=== PATIENT | male | born 1955 | race Caucasian/White ===

== ENCOUNTER 2016-11-06 19:51 | Emergency (ER) | payer OTHER ==
[~2016-11-06] VITALS: Ht 182.9 cm; Wt 102.3 kg
[2016-11-06] MEDS ORDERED: NS 500 ML IV ONE (20:00)
[2016-11-06] MEDS ORDERED: fentaNYL 100 MCG/2 ML INJECTION (J3010) IV ONE (20:00)
[2016-11-06 20:58] LABS: BASO % 0.3 % (0.0-1.0); EOS # 0.1 K/mm3 (0.0-0.50); EOS % 0.9 % (0.0-3.0); LARGE UNSTAINED CELL # 0.1 K/mm3 (0.0-0.4); LARGE UNSTAINED CELL % 1.7 % (0.0-4.0); LYMPH # 1.8 K/mm3 (1.5-4.5); LYMPH % 22.7 % (24.0-44.0); MEAN CORPUSCULAR HGB CONC 35.2 g/dl (32.0-36.5); MEAN CORPUSCULAR VOLUME 90.7 fl (80.0-96.0); MONO # 0.4 K/mm3 (0.0-0.8); MONO % 5.6 % (0.0-5.0); NEUTROPHILS # 5.5 K/mm3 (1.8-7.7); NEUTROPHILS % 68.7 % (36.0-66.0); PLATELET COUNT, AUTOMATED 254 k/mm3 (150-450); RED CELL DISTRIBUTION WIDTH 13.3 % (11.5-14.5); WHITE BLOOD COUNT 7.9 K/mm3 (4.0-10.0)
[2016-11-06 21:08] LABS: INR 0.97
[2016-11-06 21:22] LABS: ALBUMIN 4.3 GM/DL (3.2-5.2); ALBUMIN/GLOBULIN RATIO 1.26 (1.00-1.93); ALKALINE PHOSPHATASE 107 U/L (45-117); ALT/SGPT 49 U/L (12-78); ANION GAP 7 MEQ/L (8-16); AST/SGOT 22 U/L (15-37); BILIRUBIN,DIRECT 0.1 MG/DL (0.0-0.2); BILIRUBIN,TOTAL 0.6 MG/DL (0.2-1.0); BLOOD UREA NITROGEN 17 MG/DL (7-18); CALCIUM LEVEL 8.7 MG/DL (8.8-10.2); CARBON DIOXIDE LEVEL 26 MEQ/L (21-32); CHLORIDE LEVEL 106 MEQ/L (98-107); CREATININE FOR GFR 0.99 MG/DL (0.70-1.30); GLOMERULAR FILTRATION RATE > 60.0 (>49); GLUCOSE, FASTING 103 MG/DL (80-110); POTASSIUM SERUM 3.6 MEQ/L (3.5-5.1); SODIUM LEVEL 139 MEQ/L (136-145); TOTAL PROTEIN 7.7 GM/DL (6.4-8.2)
[2016-11-06] MEDS ORDERED: ISOVUE-370 76% 100ML VIAL (Q9967) As Ordered ONE (21:24)
--- NOTE | 2016-11-06 22:10 | REPUSA ---
CT of the head Clinical history: trauma. Technique: Multiple axial CT images were obtained through the head without administration of contrast . Comparison: None. Findings: The ventricles and sulci are symmetric bilaterally. There is no evidence of acute hemorrhag e or infarct. There is no midline shift, mass effect, or extra-axial fluid collection. The osseous st ructures are unremarkable. The visualized paranasal sinuses and mastoid air cells are clear. Impression: Negative study.
--- NOTE | 2016-11-06 22:10 | REPUSA ---
CT of the abdomen and pelvis with contrast Clinical statement: trauma. Technique: Multiple axial CT images were obtained from the base of the lungs through the floor of the pelvis utilizing 5 mm axial slices after administration of nonionic intravenous contrast. Coronal an d sagittal reconstructions were also obtained. Comparison: None. Findings: Chest: The visualized lung bases are clear. Abdomen: The spleen, pancreas, kidneys, gallbladder, and adrenal glands are unremarkable. There is di ffuse heterogeneous low attenuation of the liver. The aorta is within normal limits. There is no evid ence of abdominal lymphadenopathy or ascites. Pelvis: The bowel is unremarkable, with no obstructive or inflammatory changes. There is diffuse dive rticulosis. The urinary bladder is within normal limits. The other pelvic structures appear grossly i ntact. There is no evidence of pelvic lymphadenopathy or ascites. Bones: There are no suspicious osseous abnormalities seen. Impression: 1. No acute traumatic injury. 2. Diffuse fatty infiltration of the liver. 3. Diffuse diverticulosis. No evidence of diverticulitis.
--- NOTE | 2016-11-06 22:10 | REPUSA ---
CT of the cervical spine Clinical history: Trauma. Technique: Multiple axial CT images were obtained through the cervical spine without administration o f contrast. Coronal and sagittal 3-D reconstructed images were also obtained. Comparison: None. Findings: The cervical vertebral bodies are in satisfactory positioning and alignment. No fractures or dislocat ions are demonstrated. The odontoid process is intact. Intervertebral disc spaces are well-maintained . There is no evidence of facet subluxation. The neural foramen appear grossly patent. The cervical c ranial junction is intact. The cervical spinal canal demonstrates normal caliber and contour without evidence of spinal stenosis. The surrounding soft tissues are within normal limits. Impression: Unremarkable CT examination of the cervical spine.
--- NOTE | 2016-11-06 22:10 | REPUSA ---
CT of the chest Clinical statement: Chest pain, trauma. Technique: Multiple axial CT images were obtained from the thoracic inlet through the upper abdomen a fter a bolus administration of nonionic intravenous contrast. Coronal and sagittal reconstructions we re also obtained. Comparison: None. Findings: The central pulmonary arteries are well-opacified with contrast, with no intraluminal filli ng defects to suggest embolism. The thoracic aorta is unremarkable. Thyroid gland is within normal li mits. There is no thoracic lymphadenopathy. There are no pericardial or pleural effusions. The lungs are clear. Limited imaging of the upper abdomen is unremarkable. There are no suspicious osseous lesi ons. Impression: Unremarkable CT examination of the chest. No evidence of pulmonary embolism.
[2016-11-07] MEDS ORDERED: PERCOCET 5MG/325MG TAB PO ONE (00:45)
[2016-11-07 00:51] VITALS: BP 149/85
[2016-11-07] MEDS ORDERED: PERC5TAB6 PO (00:56)
[2016-11-07] MEDS ORDERED: CYCL5TA PO (00:57)
[2016-11-07] MEDS ORDERED: OXYCODONE/APAP 5MG/325MG(BULK FOR ED) 1 TABLET PO ONE (01:00)
--- NOTE | 2016-11-07 01:09 | REP ---
Clinical: Pain with recent trauma . Technique: Internal rotation, external rotation, and Y view left shoulder . Findings: No acute fracture or dislocation. Age-related degenerative changes include cortical irregularity and subtle spurring primarily involving the acromioclavicular joint as well as anteroinferior margin of the humeral head. A small periarticular calcification adjacent to the humeral tuberosity also reflect underlying calcific tendinopathy. The acromioclavicular and glenohumeral joints are intact. Sub acromial space is normal. Surrounding soft tissues are unremarkable. 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 No acute fracture or dislocation. Signed by Wang Billings MD 11/07/2016 01:00 A
--- NOTE | 2016-11-07 01:12 | REP ---
Clinical: Trauma . Comparison: 12/29/2015 . Findings: The mediastinum and cardiac silhouette are stable and within normal limits for portable technique. The lung rodriguez are clear without acute consolidation, effusion, or pneumothorax. Skeletal structures are intact. Impression: Normal portable chest x-ray Signed by Wang Billings MD 11/07/2016 01:03 A
--- NOTE | 2016-11-07 05:58 | ECGEPIP ---
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
== END 2016-11-07 01:27 | disposition home or self-care (01) ==
LOC: EDBD 19:51 → M ED 21:23
DX: R31.9 Hematuria, unspecified (principal); W23.0XXA Caught, crushed, jammed, or pinched between moving objects, initial encounter; Y92.9 Unspecified place or not applicable; Y93.89 Activity, other specified; Y99.9 Unspecified external cause status; K76.0 Fatty (change of) liver, not elsewhere classified; K57.90 Diverticulosis of intestine, part unspecified, without perforation or abscess without bleeding
CPT/HCPCS: 36415; 70450; 71010; 71260; 72125; 73030; 74177; 80048; 80076; 81001; 82550; 82553; 83605; 83690; 85025; 85610; 85730; 86850; 86900; 86901; 93005; 93041; 94760; 96374; 99284; J3010; Q9967

== ENCOUNTER → 2016-11-13 | Outpatient (CLI) | payer OTHER ==
[~2016-11-13] MED LIST: CYCL5TA PO; PERC5TAB6 PO
[2016-11-13 10:55] LABS: MEAN CORPUSCULAR HGB CONC 35.1 g/dl (32.0-36.5); MEAN CORPUSCULAR VOLUME 91.3 fl (80.0-96.0); WHITE BLOOD COUNT 5.2 K/mm3 (4.0-10.0)
== END ==
LOC: M LAB 09:35
PROVIDERS: ATTEND Family Medicine
DX: D64.9 Anemia, unspecified (principal)

== ENCOUNTER → 2016-12-07 | Outpatient (CLI) | payer OTHER ==
[~2016-12-07] MED LIST changes: -CYCL5TA PO; +CYCL5TAB PO; +PERC5TAB12 PO; -PERC5TAB6 PO
[2016-12-07 19:43] LABS: BASO % 0.8 % (0.0-1.0); EOS # 0.1 K/mm3 (0.0-0.50); EOS % 1.2 % (0.0-3.0); LARGE UNSTAINED CELL # 0.1 K/mm3 (0.0-0.4); LARGE UNSTAINED CELL % 2.1 % (0.0-4.0); LYMPH % 35.4 % (24.0-44.0); MEAN CORPUSCULAR HEMOGLOBIN 31.8 pg (27.0-33.0); MEAN CORPUSCULAR HGB CONC 34.7 g/dl (32.0-36.5); MEAN CORPUSCULAR VOLUME 91.6 fl (80.0-96.0); MONO # 0.4 K/mm3 (0.0-0.8); MONO % 7.2 % (0.0-5.0); NEUTROPHILS # 2.9 K/mm3 (1.8-7.7); NEUTROPHILS % 53.2 % (36.0-66.0); PLATELET COUNT, AUTOMATED 247 k/mm3 (150-450); RED CELL DISTRIBUTION WIDTH 13.6 % (11.5-14.5); WHITE BLOOD COUNT 5.4 K/mm3 (4.0-10.0)
[2016-12-07 19:59] LABS: ALBUMIN 4.1 GM/DL (3.2-5.2); ALBUMIN/GLOBULIN RATIO 1.37 (1.00-1.93); ALKALINE PHOSPHATASE 96 U/L (45-117); ALT/SGPT 46 U/L (12-78); ANION GAP 4 MEQ/L (8-16); AST/SGOT 23 U/L (15-37); BILIRUBIN,TOTAL 0.5 MG/DL (0.2-1.0); BLOOD UREA NITROGEN 16 MG/DL (7-18); CARBON DIOXIDE LEVEL 29 MEQ/L (21-32); CHLORIDE LEVEL 108 MEQ/L (98-107); CREATININE FOR GFR 0.96 MG/DL (0.70-1.30); GLOMERULAR FILTRATION RATE > 60.0 (>49); GLUCOSE, FASTING 112 MG/DL (80-110); POTASSIUM SERUM 3.9 MEQ/L (3.5-5.1); SODIUM LEVEL 141 MEQ/L (136-145); TOTAL PROTEIN 7.1 GM/DL (6.4-8.2)
--- NOTE | 2016-12-08 06:32 | REP ---
Clinical: Chest pain and edema . Comparison: 11/06/2016 . Technique: PA and lateral. Findings: The mediastinum and cardiac silhouette are normal. The lung rodriguez are clear and without acute consolidation, effusion, or pneumothorax. The skeletal structures are intact and normal. Impression: 1. No acute cardiopulmonary process. Signed by Wang Billings MD 12/08/2016 03:56 A
== END ==
LOC: M WUC 16:01
PROVIDERS: ATTEND Physician Assistant
DX: R60.9 Edema, unspecified (principal)

== ENCOUNTER → 2017-04-27 | Outpatient (CLI) | payer OTHER ==
--- NOTE | 2017-04-27 09:42 | REP ---
Clinical: Right lower quadrant mass . Comparison: 12/07/2016 . Technique: PA and lateral. Findings: The mediastinum and cardiac silhouette are normal. The lung rodriguez are clear and without acute consolidation, effusion, or pneumothorax. The skeletal structures are intact and normal. Impression: 1. No acute cardiopulmonary process. Signed by Wang Billings MD 04/27/2017 09:33 A
[2017-04-27 10:28] LABS: MEAN CORPUSCULAR HEMOGLOBIN 31.3 pg (27.0-33.0); MEAN CORPUSCULAR HGB CONC 33.6 g/dl (32.0-36.5); MEAN CORPUSCULAR VOLUME 93.2 fl (80.0-96.0); PLATELET COUNT, AUTOMATED 257 10^3/uL (150-450); RED CELL DISTRIBUTION WIDTH 13.3 % (11.5-14.5); WHITE BLOOD COUNT 6.8 10^3/uL (4.0-10.0)
[2017-04-27 11:00] LABS: ALBUMIN/GLOBULIN RATIO 1.25 (1.00-1.93); ALKALINE PHOSPHATASE 88 U/L (45-117); ALT/SGPT 38 U/L (12-78); ANION GAP 7 MEQ/L (8-16); AST/SGOT 17 U/L (7-37); BILIRUBIN,TOTAL 0.7 MG/DL (0.2-1.0); BLOOD UREA NITROGEN 17 MG/DL (7-18); CALCIUM LEVEL 8.9 MG/DL (8.8-10.2); CARBON DIOXIDE LEVEL 31 MEQ/L (21-32); CHLORIDE LEVEL 104 MEQ/L (98-107); CHOLESTEROL LEVEL 190 MG/DL (<200); CREATININE FOR GFR 0.84 MG/DL (0.70-1.30); GLOMERULAR FILTRATION RATE > 60.0 (>49); GLUCOSE, FASTING 102 MG/DL (80-110); POTASSIUM SERUM 4.1 MEQ/L (3.5-5.1); SODIUM LEVEL 142 MEQ/L (136-145); TOTAL PROTEIN 7.2 GM/DL (6.4-8.2); TRIGLYCERIDES LEVEL 77 MG/DL (<150)
--- NOTE | 2017-04-27 13:16 | ECGEPIP ---
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
--- NOTE | 2017-04-28 07:38 | REP ---
CT ABDOMEN AND PELVIS WITHOUT CONTRAST: HISTORY: Right lower quadrant mass. COMPARISON: 11/06/2016 There is fatty infiltration of the liver. Calcification is present in the gallbladder consistent with cholelithiasis. The pancreas, spleen, adrenal glands and kidneys are normal in appearance. There is no mass, adenopathy or free fluid. The visualized lungs are clear. Diverticula are present in the transverse, descending and sigmoid colon. The prostate gland and urinary bladder are normal in appearance. A small left inguinal hernia containing fat is present. Surgical clips are present in the right lower quadrant. Minimal degenerative change is present in the spine. IMPRESSION: 1. Fatty infiltration of the liver. 2. Cholelithiasis. 3. Diverticulosis. 4. Small fat containing left inguinal hernia. Signed by Ronaldo Williamson MD 04/28/2017 09:00 A
== END ==
LOC: M RAD 08:33
PROVIDERS: ATTEND Family Medicine
DX: R10.9 Unspecified abdominal pain (principal)

== ENCOUNTER 2018-01-05 00:16 | Emergency (ER) | payer OTHER ==
[2018-01-05] MEDS ORDERED: METAL LOCK LOOP XX (05:58)
== END 2018-01-05 04:46 | disposition left against medical advice (07) ==
LOC: M ED 04:46
DX: Z53.29 Procedure and treatment not carried out because of patient's decision for other reasons (principal)

== ENCOUNTER → 2019-02-03 | Outpatient (CLI) | payer OTHER ==
[~2019-02-03] MED LIST changes: +LOSA50TA88; +PRAV40TA2; +tamsulosin
== END ==
LOC: M LAB 14:02
PROVIDERS: ATTEND Urology
DX: N40.1 Benign prostatic hyperplasia with lower urinary tract symptoms (principal); N13.8 Other obstructive and reflux uropathy

== ENCOUNTER 2019-04-24 12:27 | Emergency (ER) | payer OTHER ==
[~2019-04-24] VITALS: Ht 182.9 cm; Wt 102.3 kg
[2019-04-24 12:27] VITALS: BP 158/80
[2019-04-24] MEDS ORDERED: TAMS1CAP17 (12:39)
[2019-04-24] MEDS ORDERED: FURO40TA2 (12:39)
[2019-04-24] MEDS ORDERED: LOSA25TA14 (12:39)
[2019-04-24] MEDS ORDERED: FINA5TAB2 (12:39)
[2019-04-24] MEDS ORDERED: DOXYCYCLINE HYCLATE 100 MG TAB PO ONE (13:15)
[2019-04-24] MEDS ORDERED: DOXY100C37 PO (13:19)
[2019-04-26 15:33] LABS: Lyme Disease IgG/IgM Antibodie <0.91 ISR (0.00-0.90); Lyme Disease IgM Ab Quantitati <0.80 index (0.00-0.79)
== END 2019-04-24 13:27 | disposition home or self-care (01) ==
LOC: M ED 12:27
DX: L03.311 Cellulitis of abdominal wall (principal); S30.861A Insect bite (nonvenomous) of abdominal wall, initial encounter; W57.XXXA Bitten or stung by nonvenomous insect and other nonvenomous arthropods, initial encounter; Y92.89 Other specified places as the place of occurrence of the external cause; I10 Essential (primary) hypertension; E78.5 Hyperlipidemia, unspecified; Z79.899 Other long term (current) drug therapy; Z88.8 Allergy status to other drugs, medicaments and biological substances

== ENCOUNTER → 2021-04-27 | Outpatient (CLI) | payer MEDICARE, OTHER ==
[~2021-04-27] MED LIST changes: +DOXY-443 PO; +FINA5TAB2; +FURO40TA2; +LOSA25TA13; +LOSA50TA28; -LOSA50TA88; +TAMS1CAP17
[2021-04-27 11:49] LABS: MEAN CORPUSCULAR HEMOGLOBIN 30.9 pg (27.0-33.0); MEAN CORPUSCULAR HGB CONC 33.3 g/dl (32.0-36.5); MEAN CORPUSCULAR VOLUME 92.8 fl (80.0-96.0); PLATELET COUNT, AUTOMATED 226 10^3/uL (150-450); RED BLOOD COUNT 4.85 10^6/uL (4.30-6.10); WHITE BLOOD COUNT 7.7 10^3/uL (4.0-10.0)
[2021-04-27 12:15] LABS: HEMOGLOBIN A1c 9.4 %
[2021-04-27 12:29] LABS: ALT/SGPT 44 U/L (12-78); BILIRUBIN,TOTAL 0.7 MG/DL (0.2-1.0); BLOOD UREA NITROGEN 23 MG/DL (7-18); CARBON DIOXIDE LEVEL 28 MEQ/L (21-32); CHLORIDE LEVEL 107 MEQ/L (98-107); CHOLESTEROL LEVEL 218 MG/DL (<200); CHOLESTEROL RISK RATIO 4.037 (<5); CREATININE FOR GFR 0.89 MG/DL (0.70-1.30); GLOMERULAR FILTRATION RATE > 60.0 (>49); GLUCOSE, FASTING 222 MG/DL (70-100); HDL CHOLESTEROL 54 MG/DL (>40); LDL CHOLESTEROL 135 MG/DL (<100); NON-HDL-C 164 MG/DL; POTASSIUM SERUM 3.8 MEQ/L (3.5-5.1); SODIUM LEVEL 141 MEQ/L (136-145); TOTAL 25(OH) VITAMIN D 31.3 NG/ML (30.0-100.0); TOTAL PROTEIN 7.3 GM/DL (6.4-8.2); TRIGLYCERIDES LEVEL 146 MG/DL (<150)
[2021-04-27 12:30] LABS: TESTOSTERONE 394 NG/DL (241-827)
== END ==
LOC: M WUC 09:16
PROVIDERS: ATTEND Family Medicine
DX: I10 Essential (primary) hypertension (principal)

== ENCOUNTER → 2021-05-30 | Outpatient (CLI) | payer MEDICARE, OTHER ==
[~2021-05-30] MED LIST changes: -LOSA25TA13; +LOSA25TA14; -LOSA50TA28; +LOSA50TA88
[2021-05-30 12:51] LABS: HEMOGLOBIN A1c 7.8 %
== END ==
LOC: M WUC 08:47
PROVIDERS: ATTEND Family Medicine
DX: E11.9 Type 2 diabetes mellitus without complications (principal)

== ENCOUNTER → 2021-07-07 | Outpatient (CLI) | payer MEDICARE, OTHER ==
[~2021-07-07] MED LIST changes: +LOSA25TA13; -LOSA25TA14; +LOSA50TA28; -LOSA50TA88
[2021-07-07 10:40] LABS: HEMATOCRIT 43.5 % (42.0-52.0); HEMOGLOBIN 14.6 g/dl (13.5-17.5); MEAN CORPUSCULAR HEMOGLOBIN 30.7 pg (27.0-33.0); MEAN CORPUSCULAR HGB CONC 33.6 g/dl (32.0-36.5); MEAN CORPUSCULAR VOLUME 91.4 fl (80.0-96.0); PLATELET COUNT, AUTOMATED 245 10^3/uL (150-450); RED BLOOD COUNT 4.76 10^6/uL (4.30-6.10); WHITE BLOOD COUNT 6.5 10^3/uL (4.0-10.0)
[2021-07-07 11:14] LABS: ALBUMIN 4.2 GM/DL (3.2-5.2); ALT/SGPT 36 U/L (12-78); BILIRUBIN,TOTAL 0.6 MG/DL (0.2-1.0); BLOOD UREA NITROGEN 21 MG/DL (7-18); CALCIUM LEVEL 9.1 MG/DL (8.8-10.2); CARBON DIOXIDE LEVEL 27 MEQ/L (21-32); CHLORIDE LEVEL 109 MEQ/L (98-107); CHOLESTEROL LEVEL 185 MG/DL (<200); CHOLESTEROL RISK RATIO 3.135 (<5); GLOMERULAR FILTRATION RATE > 60.0 (>49); GLUCOSE, FASTING 131 MG/DL (70-100); HDL CHOLESTEROL 59 MG/DL (>40); LDL CHOLESTEROL 107 MG/DL (<100); NON-HDL-C 126 MG/DL; POTASSIUM SERUM 4.1 MEQ/L (3.5-5.1); PROSTATIC SPECIFIC AG MONITOR 1.57 NG/ML (< 4.00); SODIUM LEVEL 143 MEQ/L (136-145); TOTAL PROTEIN 7.3 GM/DL (6.4-8.2); TRIGLYCERIDES LEVEL 95 MG/DL (<150)
[2021-07-07 11:53] LABS: TESTOSTERONE 522 NG/DL (241-827)
[2021-07-07 12:54] LABS: HEMOGLOBIN A1c 6.6 %
== END ==
LOC: M WUC 08:50
PROVIDERS: ATTEND Family Medicine
DX: R53.83 Other fatigue (principal); I10 Essential (primary) hypertension; E11.9 Type 2 diabetes mellitus without complications

== ENCOUNTER → 2021-09-21 | Outpatient (CLI) | payer MEDICARE, OTHER | LOC: M WUC 09:57 | PROVIDERS: ATTEND Family Medicine | DX: E11.9 Type 2 diabetes mellitus without complications (principal) ==

== ENCOUNTER → 2021-10-27 | Outpatient (CLI) | payer MEDICARE, OTHER | LOC: M WUC 14:17 | PROVIDERS: ATTEND Family Medicine | DX: M25.562 Pain in left knee (principal) ==

== ENCOUNTER → 2021-12-01 | Outpatient (CLI) | payer MEDICARE, OTHER ==
[2021-12-01 10:57] LABS: BLOOD UREA NITROGEN 19 MG/DL (7-18); GLOMERULAR FILTRATION RATE > 60.0 (>49)
== END ==
LOC: M LAB 10:06
PROVIDERS: ATTEND Physician Assistant Surgical
DX: R22.42 Localized swelling, mass and lump, left lower limb (principal)

== ENCOUNTER → 2021-12-05 | Outpatient (CLI) | payer MEDICARE, OTHER ==
[~2021-12-05] MED LIST changes: +PROHANCE 279.3MG/ML 15ML VIAL As Ordered ONE; +PROHANCE 279.3MG/ML 5ML VIAL As Ordered ONE
== END ==
LOC: M RAD 08:39
PROVIDERS: ATTEND Physician Assistant Surgical
DX: R22.42 Localized swelling, mass and lump, left lower limb (principal)
CPT/HCPCS: 73720; A9576

== ENCOUNTER → 2022-01-13 | Outpatient (CLI) | payer MEDICARE, OTHER ==
[~2022-01-13] MED LIST changes: -PROHANCE 279.3MG/ML 15ML VIAL As Ordered ONE; -PROHANCE 279.3MG/ML 5ML VIAL As Ordered ONE
[2022-01-13 09:33] LABS: HEMATOCRIT 42.7 % (42.0-52.0); HEMOGLOBIN 14.6 g/dl (13.5-17.5); MEAN CORPUSCULAR HEMOGLOBIN 31.1 pg (27.0-33.0); MEAN CORPUSCULAR HGB CONC 34.2 g/dl (32.0-36.5); PLATELET COUNT, AUTOMATED 209 10^3/uL (150-450); RED BLOOD COUNT 4.69 10^6/uL (4.30-6.10); WHITE BLOOD COUNT 6.5 10^3/uL (4.0-10.0)
[2022-01-13 09:49] LABS: INR 0.94
[2022-01-13 09:59] LABS: HEMOGLOBIN A1c 6.1 %
[2022-01-13 10:10] LABS: ALBUMIN 4.3 GM/DL (3.2-5.2); ALT/SGPT 38 U/L (12-78); BILIRUBIN,TOTAL 0.8 MG/DL (0.2-1.0); BLOOD UREA NITROGEN 18 MG/DL (7-18); CALCIUM LEVEL 9.3 MG/DL (8.8-10.2); CARBON DIOXIDE LEVEL 25 MEQ/L (21-32); CHLORIDE LEVEL 106 MEQ/L (98-107); CHOLESTEROL LEVEL 188 MG/DL (<200); CHOLESTEROL RISK RATIO 3.418 (<5); CREATININE FOR GFR 0.84 MG/DL (0.70-1.30); GLOMERULAR FILTRATION RATE > 60.0 (>49); GLUCOSE, FASTING 150 MG/DL (70-100); HDL CHOLESTEROL 55 MG/DL (>40); LDL CHOLESTEROL 113 MG/DL (<100); NON-HDL-C 133 MG/DL; POTASSIUM SERUM 4.3 MEQ/L (3.5-5.1); SODIUM LEVEL 135 MEQ/L (136-145); TOTAL PROTEIN 7.2 GM/DL (6.4-8.2); TRIGLYCERIDES LEVEL 100 MG/DL (<150)
== END ==
LOC: M RAD 08:37
PROVIDERS: ATTEND Family Medicine
DX: Z01.818 Encounter for other preprocedural examination (principal); I10 Essential (primary) hypertension; Z79.899 Other long term (current) drug therapy

== ENCOUNTER → 2022-02-07 | Outpatient (REF) | payer MEDICARE, OTHER | LOC: M LAB REF 17:36 | PROVIDERS: ATTEND Orthopaedic Surgery | DX: D17.22 Benign lipomatous neoplasm of skin and subcutaneous tissue of left arm (principal) ==

== ENCOUNTER → 2022-02-24 | Outpatient (CLI) | payer MEDICARE, OTHER | LOC: M LAB 14:34 | PROVIDERS: ATTEND Urology | DX: Z79.01 Long term (current) use of anticoagulants (principal); R97.20 Elevated prostate specific antigen [PSA] ==

== ENCOUNTER 2022-05-13 09:31 | Inpatient (IN) | payer MEDICARE, OTHER ==
[~2022-05-13] VITALS: Ht 182.9 cm; Wt 94.4 kg
[~2022-05-13 09:31] MED LIST changes: -FINA5TAB2; +FINA5TAB2 PO; -PRAV40TA2; +PRAV40TA2 PO; -TAMS1CAP17; +TAMS1CAP17 PO
[2022-05-13] MEDS ORDERED: NS 500 ML IV ONE (10:10)
[2022-05-13] MEDS ORDERED: ISOVUE-370 76% 100ML VIAL As Ordered ONE (11:02)
[2022-05-13 11:42] LABS: BASO # 0.1 10^3/uL (0.0-0.2); BASO % 0.5 % (0.0-1.0); EOS % 0.2 % (0.0-3.0); HEMATOCRIT 36.7 % (42.0-52.0); HEMOGLOBIN 12.5 g/dl (13.5-17.5); LYMPH # 0.8 10^3/uL (1.5-5.0); MEAN CORPUSCULAR HEMOGLOBIN 30.9 pg (27.0-33.0); MEAN CORPUSCULAR HGB CONC 34.1 g/dl (32.0-36.5); MEAN CORPUSCULAR VOLUME 90.8 fl (80.0-96.0); MONO # 1.3 10^3/uL (0.0-0.8); MONO % 13.3 % (2.0-8.0); NEUTROPHILS # 7.5 10^3/uL (1.5-8.5); PLATELET COUNT, AUTOMATED 240 10^3/uL (150-450); RED BLOOD COUNT 4.04 10^6/uL (4.30-6.10); WHITE BLOOD COUNT 9.7 10^3/uL (4.0-10.0)
[2022-05-13 11:55] LABS: INR 1.08; PARTIAL THROMBOPLASTIN TIME 30.7 SECONDS (24.8-34.2); PROTHROMBIN TIME 14.2 SECONDS (12.5-14.5)
[2022-05-13 12:01] LABS: LIPASE 30 U/L (12-53)
[2022-05-13 12:02] LABS: CK-MB VALUE MASS < 1.0 NG/ML (<3.6)
[2022-05-13 12:04] LABS: ALBUMIN 3.1 G/DL (3.2-5.2); ALKALINE PHOSPHATASE 92 U/L (46-116); ALT/SGPT 80 U/L (7.0-40); AST/SGOT 42 U/L (<34); BILIRUBIN,DIRECT 0.4 MG/DL (<0.4); BLOOD UREA NITROGEN 19 MG/DL (9-23); CALCIUM LEVEL 8.2 MG/DL (8.3-10.6); CARBON DIOXIDE LEVEL 21 MMOL/L (20-31); CHLORIDE LEVEL 101 MMOL/L (98-107); CPK CREATINE PHOSPHOKINASE 35 U/L (46-171); CREATININE FOR GFR 0.69 MG/DL (0.70-1.30); GLOMERULAR FILTRATION RATE > 60.0 (>49); GLUCOSE, FASTING 168 MG/DL (74-106); MB/CK RELATIVE INDEX 2.85 (< OR =4); POTASSIUM SERUM 4.5 MMOL/L (3.5-5.1); SODIUM LEVEL 134 MMOL/L (136-145); TOTAL PROTEIN 6.6 G/DL (5.7-8.2)
[2022-05-13 12:05] LABS: THYROID STIMULATING HORMONE 1.682 uIU/ML (0.55-4.78)
[2022-05-13 12:06] LABS: FREE T4 1.19 NG/DL (0.89-1.76)
[2022-05-13 12:07] LABS: RSV AMPLIFICATION NEGATIVE (NEGATIVE)
[2022-05-13] MEDS ORDERED: ACETAMINOPHEN TAB 650MG DOSE (2X325MG) PO ONE (12:35)
[2022-05-13] MEDS ORDERED: METF500T13 PO (13:31)
[2022-05-13] MEDS ORDERED: ACET300T48 (13:31)
[2022-05-13] MEDS ORDERED: LOSA50TA28 PO (13:31)
[2022-05-13 13:37] LABS: CK-MB VALUE MASS < 1.0 NG/ML (<3.6)
[2022-05-13 13:38] LABS: CPK CREATINE PHOSPHOKINASE 31 U/L (46-171); MB/CK RELATIVE INDEX 3.22 (< OR =4)
[2022-05-13] MEDS ORDERED: AZITHROMYCIN INJ 500 MG, VIAL MATE ADAPTER 1 EACH in D5W 250 ML IV ONE (13:40)
[2022-05-13] MEDS ORDERED: MORPHINE 2 MG/ML 1ML VIAL IV ONE (13:40)
[2022-05-13] MEDS ORDERED: CEFEPIME HCL 2 GM in D5W MINI-BAG PLUS 50 ML IV ONE (13:40)
[2022-05-13] MEDS: IPRATROPIUM 0.5MG/ALBUTEROL 2.5MG INH SOL UD 3ML (DUONEB) NEB SCH ×2 (14:00→19:10)
[2022-05-13] MEDS ORDERED: VITA100093 PO (14:58)
[2022-05-13] MEDS ORDERED: SAW1CAPS2 PO (14:58)
[2022-05-13] MEDS ORDERED: HOME MED LIST COMPLETE! XX SCH (15:00)
[2022-05-13] MEDS ORDERED: MORPHINE 2 MG/ML 1ML VIAL IV PRN (16:00)
[2022-05-13] MEDS ORDERED: IPRATROPIUM 0.5MG/ALBUTEROL 2.5MG INH SOL UD 3ML (DUONEB) NEB PRN (16:00)
[2022-05-13] MEDS ORDERED: DEXTROSE 50% 50ML SYRINGE IV PRN (16:10)
[2022-05-13] MEDS ORDERED: GLUCOSE 4GM CHEW TABLET PO PRN (16:10)
[2022-05-13] MEDS ORDERED: GLUCAGON INJ 1MG VIAL SC PRN (16:10)
[2022-05-13] MEDS: FINASTERIDE 5MG TAB PO SCH (17:10)
[2022-05-13] MEDS: LOSARTAN 50MG TABLET PO SCH (17:11)
[2022-05-13] MEDS: PRAVASTATIN 20 MG TAB PO SCH (17:11)
[2022-05-13] MEDS: INSULIN LISPRO (NovoLOG) PER UNIT SC SCH (19:15)
[2022-05-13] MEDS: DOXYCYCLINE HYCLATE 100MG TABLET PO SCH (20:33)
[2022-05-13] MEDS: TAMSULOSIN 0.4 MG CAP PO SCH (20:33)
[2022-05-13] MEDS ORDERED: INSULIN LISPRO (NovoLOG) PER UNIT SC SCH (21:00)
[2022-05-13] MEDS: cefTRIAXone SOD 2 GM in D5W MINI-BAG PLUS 50 ML IV SCH (22:37)
[2022-05-13 23:29] LABS: CK-MB VALUE MASS < 1.0 NG/ML (<3.6)
[2022-05-13 23:34] LABS: CPK CREATINE PHOSPHOKINASE 62 U/L (46-171); MB/CK RELATIVE INDEX 1.61 (< OR =4)
[2022-05-13] MEDS: ACETAMINOPHEN 500 MG TAB PO PRN (23:57)
[2022-05-14 01:01] VITALS: BP 154/82
[2022-05-14] MEDS: IPRATROPIUM 0.5MG/ALBUTEROL 2.5MG INH SOL UD 3ML (DUONEB) NEB SCH ×2 (01:27→20:58)
[2022-05-14] MEDS ORDERED: ACETAMINOPHEN TAB 650MG DOSE (2X325MG) PO ONE (03:00)
[2022-05-14 04:03] VITALS: BP 134/79
[2022-05-14 07:51] LABS: MEAN CORPUSCULAR HEMOGLOBIN 31.3 pg (27.0-33.0); MEAN CORPUSCULAR HGB CONC 34.2 g/dl (32.0-36.5); MEAN CORPUSCULAR VOLUME 91.6 fl (80.0-96.0); PLATELET COUNT, AUTOMATED 237 10^3/uL (150-450); RED BLOOD COUNT 4.15 10^6/uL (4.30-6.10); WHITE BLOOD COUNT 10.4 10^3/uL (4.0-10.0)
[2022-05-14 08:17] LABS: CK-MB VALUE MASS < 1.0 NG/ML (<3.6)
[2022-05-14 08:23] LABS: BLOOD UREA NITROGEN 19 MG/DL (9-23); CALCIUM LEVEL 8.6 MG/DL (8.3-10.6); CARBON DIOXIDE LEVEL 22 MMOL/L (20-31); CHLORIDE LEVEL 102 MMOL/L (98-107); CPK CREATINE PHOSPHOKINASE 95 U/L (46-171); CREATININE FOR GFR 0.76 MG/DL (0.70-1.30); GLOMERULAR FILTRATION RATE > 60.0 (>49); GLUCOSE, FASTING 156 MG/DL (74-106); MB/CK RELATIVE INDEX 1.05 (< OR =4); POTASSIUM SERUM 4.5 MMOL/L (3.5-5.1); SODIUM LEVEL 135 MMOL/L (136-145)
[2022-05-14] MEDS: INSULIN LISPRO (NovoLOG) PER UNIT SC SCH (09:17)
[2022-05-14] MEDS: DOXYCYCLINE HYCLATE 100MG TABLET PO SCH ×2 (09:17→22:02)
[2022-05-14] MEDS: PRAVASTATIN 20 MG TAB PO SCH (09:17)
[2022-05-14] MEDS: LOSARTAN 50MG TABLET PO SCH (09:17)
[2022-05-14] MEDS: TAMSULOSIN 0.4 MG CAP PO SCH ×2 (09:17→22:01)
[2022-05-14] MEDS: FINASTERIDE 5MG TAB PO SCH (09:17)
[2022-05-14] MEDS: ENOXAPARIN 40MG/0.4ML SYRINGE (J1650 PER 10MG) SC SCH (09:17)
[2022-05-14 14:55] LABS: CK-MB VALUE MASS < 1.0 NG/ML (<3.6)
[2022-05-14 14:57] LABS: CPK CREATINE PHOSPHOKINASE 88 U/L (46-171); MB/CK RELATIVE INDEX 1.13 (< OR =4)
[2022-05-14 16:05] VITALS: BP 166/86
[2022-05-14] MEDS: ACETAMINOPHEN 500 MG TAB PO PRN ×2 (16:21→22:01)
[2022-05-14] MEDS: traMADol 50 MG TAB PO PRN (16:22)
[2022-05-14 20:20] VITALS: BP 140/79
[2022-05-14] MEDS: cefTRIAXone SOD 2 GM in D5W MINI-BAG PLUS 50 ML IV SCH (22:06)
[2022-05-14 23:12] VITALS: BP 156/87
[2022-05-15] VITALS: PULSE 69
[2022-05-15] MEDS: IPRATROPIUM 0.5MG/ALBUTEROL 2.5MG INH SOL UD 3ML (DUONEB) NEB SCH ×4 (02:16→20:08)
[2022-05-15 03:53] VITALS: BP 143/84
[2022-05-15 05:59] LABS: HEMATOCRIT 36.7 % (42.0-52.0); HEMOGLOBIN 12.3 g/dl (13.5-17.5); MEAN CORPUSCULAR HEMOGLOBIN 30.4 pg (27.0-33.0); MEAN CORPUSCULAR HGB CONC 33.5 g/dl (32.0-36.5); MEAN CORPUSCULAR VOLUME 90.6 fl (80.0-96.0); PLATELET COUNT, AUTOMATED 289 10^3/uL (150-450); RED BLOOD COUNT 4.05 10^6/uL (4.30-6.10); WHITE BLOOD COUNT 11.1 10^3/uL (4.0-10.0)
[2022-05-15 06:30] LABS: BLOOD UREA NITROGEN 20 MG/DL (9-23); CALCIUM LEVEL 8.3 MG/DL (8.3-10.6); CARBON DIOXIDE LEVEL 22 MMOL/L (20-31); CHLORIDE LEVEL 102 MMOL/L (98-107); CREATININE FOR GFR 0.79 MG/DL (0.70-1.30); GLOMERULAR FILTRATION RATE > 60.0 (>49); GLUCOSE, FASTING 151 MG/DL (74-106); POTASSIUM SERUM 4.4 MMOL/L (3.5-5.1); SODIUM LEVEL 137 MMOL/L (136-145)
[2022-05-15 08:00] VITALS: BP 160/83
[2022-05-15] MEDS: LOSARTAN 50MG TABLET PO SCH (08:22)
[2022-05-15] MEDS: ENOXAPARIN 40MG/0.4ML SYRINGE (J1650 PER 10MG) SC SCH (08:22)
[2022-05-15] MEDS: PRAVASTATIN 20 MG TAB PO SCH (08:22)
[2022-05-15] MEDS: TAMSULOSIN 0.4 MG CAP PO SCH ×2 (08:23→21:16)
[2022-05-15] MEDS: DOXYCYCLINE HYCLATE 100MG TABLET PO SCH ×2 (08:23→21:16)
[2022-05-15] MEDS: FINASTERIDE 5MG TAB PO SCH (08:23)
[2022-05-15 12:00] VITALS: BP 153/83
[2022-05-15] MEDS: traMADol 50 MG TAB PO PRN (14:15)
[2022-05-15 16:00] VITALS: BP 159/60
[2022-05-15 20:00] VITALS: BP 160/86
[2022-05-15] MEDS: cefTRIAXone SOD 2 GM in D5W MINI-BAG PLUS 50 ML IV SCH (21:17)
[2022-05-15] MEDS: ACETAMINOPHEN 500 MG TAB PO PRN (21:17)
[2022-05-16] MEDS: IPRATROPIUM 0.5MG/ALBUTEROL 2.5MG INH SOL UD 3ML (DUONEB) NEB SCH ×2 (02:23→07:22)
[2022-05-16 04:00] VITALS: BP 146/77
[2022-05-16 05:22] LABS: HEMATOCRIT 35.3 % (42.0-52.0); MEAN CORPUSCULAR HEMOGLOBIN 30.8 pg (27.0-33.0); MEAN CORPUSCULAR VOLUME 90.5 fl (80.0-96.0); PLATELET COUNT, AUTOMATED 308 10^3/uL (150-450); WHITE BLOOD COUNT 9.1 10^3/uL (4.0-10.0)
[2022-05-16 05:49] LABS: BLOOD UREA NITROGEN 20 MG/DL (9-23); CALCIUM LEVEL 8.2 MG/DL (8.3-10.6); CARBON DIOXIDE LEVEL 25 MMOL/L (20-31); CHLORIDE LEVEL 100 MMOL/L (98-107); CREATININE FOR GFR 0.75 MG/DL (0.70-1.30); GLOMERULAR FILTRATION RATE > 60.0 (>49); GLUCOSE, FASTING 195 MG/DL (74-106); POTASSIUM SERUM 4.5 MMOL/L (3.5-5.1); SODIUM LEVEL 136 MMOL/L (136-145)
[2022-05-16 08:00] VITALS: BP 152/83
[2022-05-16 08:18] VITALS: BP 152/83
[2022-05-16] MEDS: TAMSULOSIN 0.4 MG CAP PO SCH (08:18)
[2022-05-16] MEDS: ENOXAPARIN 40MG/0.4ML SYRINGE (J1650 PER 10MG) SC SCH (08:18)
[2022-05-16] MEDS: FINASTERIDE 5MG TAB PO SCH (08:18)
[2022-05-16] MEDS: PRAVASTATIN 20 MG TAB PO SCH (08:18)
[2022-05-16] MEDS: LOSARTAN 50MG TABLET PO SCH (08:18)
[2022-05-16] MEDS: DOXYCYCLINE HYCLATE 100MG TABLET PO SCH (08:18)
[2022-05-16] MEDS ORDERED: BACI1CAP PO (08:52)
[2022-05-16] MEDS ORDERED: CEFD300CAP PO (08:52)
[2022-05-16] MEDS ORDERED: DOXY100T PO (08:52)
== END 2022-05-16 13:12 | disposition home or self-care (01) | DRG 195 ==
LOC: M ED 09:31 → M ED INP 15:59 → ENRESERV 05-14 13:34 → M PCU 05-14 15:59
PROVIDERS: ADMIT Family Medicine; ATTEND General Practice
PROC: B246ZZZ Ultrasonography of Right and Left Heart (ICD-10-PCS; principal; 2022-05-13)
DX: J18.9 Pneumonia, unspecified organism (principal); I10 Essential (primary) hypertension; E78.5 Hyperlipidemia, unspecified; J42 Unspecified chronic bronchitis; N40.0 Benign prostatic hyperplasia without lower urinary tract symptoms; E11.9 Type 2 diabetes mellitus without complications; E55.9 Vitamin D deficiency, unspecified; R55 Syncope and collapse; S20.211A Contusion of right front wall of thorax, initial encounter; W18.30XA Fall on same level, unspecified, initial encounter; Y93.E1 Activity, personal bathing and showering; Y92.002 Bathroom of unspecified non-institutional (private) residence as the place of occurrence of the external cause; Y99.8 Other external cause status; M54.2 Cervicalgia; R07.89 Other chest pain; Z79.84 Long term (current) use of oral hypoglycemic drugs; Z79.899 Other long term (current) drug therapy; Z88.8 Allergy status to other drugs, medicaments and biological substances

== ENCOUNTER → 2022-07-28 | Outpatient (CLI) | payer MEDICARE, OTHER ==
[~2022-07-28] MED LIST changes: +ACET300T48; +BACI1CAP PO; +CEFD300CAP PO; +DOXY100T PO; +LOSA50TA28 PO; +METF500T13 PO; +SAW1CAPS2 PO; +VITA100093 PO
[2022-07-28 09:23] LABS: HEMATOCRIT 41.3 % (42.0-52.0); HEMOGLOBIN 14.1 g/dl (13.5-17.5); MEAN CORPUSCULAR HEMOGLOBIN 30.6 pg (27.0-33.0); MEAN CORPUSCULAR HGB CONC 34.1 g/dl (32.0-36.5); MEAN CORPUSCULAR VOLUME 89.6 fl (80.0-96.0); PLATELET COUNT, AUTOMATED 218 10^3/uL (150-450); RED BLOOD COUNT 4.61 10^6/uL (4.30-6.10); WHITE BLOOD COUNT 5.3 10^3/uL (4.0-10.0)
[2022-07-28 09:38] LABS: HEMOGLOBIN A1c 6.6 % (4.0-6.0)
[2022-07-28 09:57] LABS: PROSTATIC SPECIFIC AG MONITOR 1.07 NG/ML (< 4.00)
[2022-07-28 10:01] LABS: THYROID STIMULATING HORMONE 3.875 uIU/ML (0.55-4.78)
[2022-07-28 10:03] LABS: TESTOSTERONE 543 NG/DL (241-827)
[2022-07-28 10:05] LABS: ALBUMIN 4.2 G/DL (3.2-5.2); ALKALINE PHOSPHATASE 87 U/L (46-116); ALT/SGPT 40 U/L (7.0-40); AST/SGOT 18 U/L (<34); BILIRUBIN,TOTAL 0.8 MG/DL (0.3-1.2); BLOOD UREA NITROGEN 16 MG/DL (9-23); CALCIUM LEVEL 8.9 MG/DL (8.3-10.6); CARBON DIOXIDE LEVEL 29 MMOL/L (20-31); CHLORIDE LEVEL 105 MMOL/L (98-107); CHOLESTEROL LEVEL 200 MG/DL (<200); CHOLESTEROL RISK RATIO 3.36 (<5); CREATININE FOR GFR 0.69 MG/DL (0.70-1.30); GLOMERULAR FILTRATION RATE > 60.0 (>49); GLUCOSE, FASTING 183 MG/DL (74-106); HDL CHOLESTEROL 59.4 MG/DL (>40); LDL CHOLESTEROL 120.2 MG/DL (<100); NON-HDL-C 141 MG/DL; POTASSIUM SERUM 3.9 MMOL/L (3.5-5.1); SODIUM LEVEL 140 MMOL/L (136-145); TOTAL PROTEIN 7.1 G/DL (5.7-8.2); TRIGLYCERIDES LEVEL 102 MG/DL (<150)
== END ==
LOC: M LAB 08:50
PROVIDERS: ATTEND Family Medicine
DX: I10 Essential (primary) hypertension (principal); E11.9 Type 2 diabetes mellitus without complications; R53.83 Other fatigue

== ENCOUNTER → 2022-09-26 | Outpatient (CLI) | payer MEDICARE, OTHER ==
[2022-09-26 09:41] LABS: HEMATOCRIT 43.8 % (42.0-52.0); HEMOGLOBIN 14.9 g/dl (13.5-17.5); MEAN CORPUSCULAR HEMOGLOBIN 30.9 pg (27.0-33.0); MEAN CORPUSCULAR VOLUME 90.9 fl (80.0-96.0); PLATELET COUNT, AUTOMATED 206 10^3/uL (150-450); RED BLOOD COUNT 4.82 10^6/uL (4.30-6.10); WHITE BLOOD COUNT 6.2 10^3/uL (4.0-10.0)
[2022-09-26 09:54] LABS: HEMOGLOBIN A1c 7.2 % (4.0-6.0)
[2022-09-26 10:02] LABS: PROSTATIC SPECIFIC AG MONITOR 0.99 NG/ML (< 4.00)
[2022-09-26 10:04] LABS: ALBUMIN 4.3 G/DL (3.2-5.2); ALKALINE PHOSPHATASE 105 U/L (46-116); ALT/SGPT 42 U/L (7.0-40); AST/SGOT 15 U/L (<34); BILIRUBIN,TOTAL 0.7 MG/DL (0.3-1.2); BLOOD UREA NITROGEN 23 MG/DL (9-23); CALCIUM LEVEL 9.1 MG/DL (8.3-10.6); CARBON DIOXIDE LEVEL 28 MMOL/L (20-31); CHLORIDE LEVEL 107 MMOL/L (98-107); CHOLESTEROL LEVEL 182 MG/DL (<200); CHOLESTEROL RISK RATIO 3.18 (<5); CREATININE FOR GFR 0.72 MG/DL (0.70-1.30); GLOMERULAR FILTRATION RATE > 60.0 (>49); GLUCOSE, FASTING 189 MG/DL (74-106); HDL CHOLESTEROL 57.2 MG/DL (>40); LDL CHOLESTEROL 107.2 MG/DL (<100); NON-HDL-C 124.8 MG/DL; POTASSIUM SERUM 4.1 MMOL/L (3.5-5.1); SODIUM LEVEL 141 MMOL/L (136-145); TOTAL PROTEIN 7.1 G/DL (5.7-8.2); TRIGLYCERIDES LEVEL 88 MG/DL (<150)
[2022-09-26 10:06] LABS: THYROID STIMULATING HORMONE 3.381 uIU/ML (0.55-4.78)
[2022-09-26 10:07] LABS: TESTOSTERONE 456 NG/DL (241-827)
== END ==
LOC: M LAB 08:37
PROVIDERS: ATTEND Family Medicine
DX: D64.9 Anemia, unspecified (principal); R53.83 Other fatigue; E03.9 Hypothyroidism, unspecified; R97.20 Elevated prostate specific antigen [PSA]

== ENCOUNTER 2022-10-12 16:41 | Observation (INO) | payer MEDICARE, OTHER ==
[~2022-10-12] VITALS: Ht 182.9 cm; Wt 95.5 kg
[2022-10-12 17:20] LABS: BASO % 0.5 % (0.0-1.0); EOS % 0.5 % (0.0-3.0); HEMATOCRIT 41.4 % (42.0-52.0); HEMOGLOBIN 14.5 g/dl (13.5-17.5); LYMPH # 1.3 10^3/uL (1.5-5.0); LYMPH % 20.3 % (24.0-44.0); MEAN CORPUSCULAR HEMOGLOBIN 31.1 pg (27.0-33.0); MEAN CORPUSCULAR VOLUME 88.8 fl (80.0-96.0); MONO # 0.5 10^3/uL (0.0-0.8); MONO % 7.8 % (2.0-8.0); NEUTROPHILS # 4.6 10^3/uL (1.5-8.5); PLATELET COUNT, AUTOMATED 197 10^3/uL (150-450); RED BLOOD COUNT 4.66 10^6/uL (4.30-6.10); WHITE BLOOD COUNT 6.6 10^3/uL (4.0-10.0)
[2022-10-12] MEDS ORDERED: ASPIRIN 81MG CHEW TABLET PO ONE (17:20)
[2022-10-12] MEDS ORDERED: NITROGLYCERIN 0.4MG SUBL TABLET SL PRN (17:20)
[2022-10-12 17:31] LABS: INR 0.87
[2022-10-12 17:43] LABS: CK-MB VALUE MASS 1.1 NG/ML (<3.6); LIPASE 38 U/L (12-53)
[2022-10-12 17:45] LABS: CPK CREATINE PHOSPHOKINASE 92 U/L (46-171); MB/CK RELATIVE INDEX 1.19 (< OR =4)
[2022-10-12 17:46] LABS: ALBUMIN 4.3 G/DL (3.2-5.2); ALKALINE PHOSPHATASE 98 U/L (46-116); ALT/SGPT 44 U/L (7.0-40); AST/SGOT < 8 U/L (<34); BILIRUBIN,DIRECT 0.4 MG/DL (<0.4); BILIRUBIN,TOTAL 1.2 MG/DL (0.3-1.2); BLOOD UREA NITROGEN 22 MG/DL (9-23); CALCIUM LEVEL 9.3 MG/DL (8.3-10.6); CARBON DIOXIDE LEVEL 24 MMOL/L (20-31); CHLORIDE LEVEL 105 MMOL/L (98-107); CREATININE FOR GFR 1.07 MG/DL (0.70-1.30); GLOMERULAR FILTRATION RATE > 60.0 (>49); GLUCOSE, FASTING 192 MG/DL (74-106); POTASSIUM SERUM 4.5 MMOL/L (3.5-5.1); SODIUM LEVEL 138 MMOL/L (136-145); TOTAL PROTEIN 7.2 G/DL (5.7-8.2)
[2022-10-12 17:47] LABS: FREE T4 1.07 NG/DL (0.89-1.76)
[2022-10-12 18:23] LABS: RSV AMPLIFICATION NEGATIVE (NEGATIVE)
[2022-10-12] MEDS ORDERED: ISOVUE-370 76% 100ML VIAL As Ordered ONE (18:24)
[2022-10-12 18:48] LABS: CK-MB VALUE MASS 1.3 NG/ML (<3.6)
[2022-10-12 18:49] LABS: MB/CK RELATIVE INDEX 1.6 (< OR =4)
[2022-10-12 20:40] LABS: CK-MB VALUE MASS < 1.0 NG/ML (<3.6)
[2022-10-12 20:47] LABS: CPK CREATINE PHOSPHOKINASE 82 U/L (46-171); MB/CK RELATIVE INDEX 1.21 (< OR =4)
[2022-10-12] MEDS ORDERED: INSULIN LISPRO (NovoLOG) PER UNIT SC SCH (21:00)
[2022-10-12] MEDS ORDERED: ASPI-655 PO (21:39)
[2022-10-12] MEDS ORDERED: AMLO1TAB24 PO (21:39)
[2022-10-12] MEDS ORDERED: LOSA100T46 PO (21:39)
[2022-10-12] MEDS ORDERED: VITMTA PO (21:39)
[2022-10-12] MEDS ORDERED: FINASTERIDE 5MG TAB PO SCH (21:40)
[2022-10-12] MEDS ORDERED: HOME MED LIST COMPLETE! XX SCH (21:40)
[2022-10-12] MEDS ORDERED: amLODIPine 5 MG TAB PO ONE (21:40)
[2022-10-12] MEDS ORDERED: DEXTROSE 50% 50ML SYRINGE IV PRN (21:45)
[2022-10-12] MEDS ORDERED: GLUCAGON INJ 1MG VIAL SC PRN (21:45)
[2022-10-12] MEDS ORDERED: ACETAMINOPHEN TAB 650MG DOSE (2X325MG) PO PRN (21:45)
[2022-10-12] MEDS ORDERED: GLUCOSE 4GM CHEW TABLET PO PRN (21:45)
[2022-10-12] MEDS: METOPROLOL TART 12.5 MG PER 1/2 TAB PO SCH (23:42)
[2022-10-12 23:59] VITALS: BP 162/88
[2022-10-13 04:00] VITALS: BP 123/71
[2022-10-13 06:15] VITALS: BP 150/81
[2022-10-13 06:26] VITALS: BP 121/70
[2022-10-13 07:03] LABS: BLOOD UREA NITROGEN 21 MG/DL (9-23); CALCIUM LEVEL 9.4 MG/DL (8.3-10.6); CARBON DIOXIDE LEVEL 26 MMOL/L (20-31); CHLORIDE LEVEL 107 MMOL/L (98-107); GLOMERULAR FILTRATION RATE > 60.0 (>49); GLUCOSE, FASTING 135 MG/DL (74-106); POTASSIUM SERUM 3.9 MMOL/L (3.5-5.1); SODIUM LEVEL 137 MMOL/L (136-145)
[2022-10-13] MEDS: INSULIN LISPRO (NovoLOG) PER UNIT SC SCH ×2 (08:34→12:00)
[2022-10-13 08:35] VITALS: BP 121/70
[2022-10-13] MEDS: METOPROLOL TART 12.5 MG PER 1/2 TAB PO SCH (08:35)
[2022-10-13] MEDS ORDERED: TAMSULOSIN 0.4 MG CAP PO SCH (09:00)
[2022-10-13] MEDS ORDERED: PRAVASTATIN 20 MG TAB PO SCH (09:00)
[2022-10-13] MEDS ORDERED: ASPIRIN 81MG CHEW TABLET PO SCH (09:00)
[2022-10-13] MEDS ORDERED: LOSARTAN 50MG TABLET PO SCH (09:00)
[2022-10-13] MEDS ORDERED: AMLO1TAB25 PO (13:39)
== END 2022-10-13 14:06 | disposition home or self-care (01) ==
LOC: M ED 16:41 → M ED INP 16:42 → M MSPAV 23:23
PROVIDERS: ADMIT Internal Medicine; ATTEND Internal Medicine
DX: R55 Syncope and collapse (principal); I16.0 Hypertensive urgency; R07.9 Chest pain, unspecified; E11.9 Type 2 diabetes mellitus without complications; N40.0 Benign prostatic hyperplasia without lower urinary tract symptoms; E78.00 Pure hypercholesterolemia, unspecified; R32 Unspecified urinary incontinence; H53.8 Other visual disturbances; Z79.899 Other long term (current) drug therapy; Z79.84 Long term (current) use of oral hypoglycemic drugs; Z79.2 Long term (current) use of antibiotics; Z88.8 Allergy status to other drugs, medicaments and biological substances
CPT/HCPCS: 36415; 70551; 71045; 71275; 80048; 80076; 82550; 82553; 83690; 83880; 84439; 84443; 84484; 85025; 85610; 87631; 93005; 93041; 93306; 94760; 99285; G0378; J1815; Q9967

== ENCOUNTER → 2023-01-02 | Outpatient (CLI) | payer MEDICARE, OTHER ==
[~2023-01-02] MED LIST changes: +AMLO1TAB24 PO; +AMLO1TAB25 PO; +ASPI-655 PO; +LOSA100T46 PO; +VITMTA PO
[2023-01-02 09:41] LABS: HEMATOCRIT 39.3 % (42.0-52.0); HEMOGLOBIN 13.2 g/dl (13.5-17.5); MEAN CORPUSCULAR HEMOGLOBIN 31.1 pg (27.0-33.0); MEAN CORPUSCULAR HGB CONC 33.6 g/dl (32.0-36.5); MEAN CORPUSCULAR VOLUME 92.7 fl (80.0-96.0); PLATELET COUNT, AUTOMATED 211 10^3/uL (150-450); RED BLOOD COUNT 4.24 10^6/uL (4.30-6.10); WHITE BLOOD COUNT 5.6 10^3/uL (4.0-10.0)
[2023-01-02 09:58] LABS: HEMOGLOBIN A1c 5.3 % (4.0-6.0)
[2023-01-02 10:06] LABS: ALBUMIN 4.2 G/DL (3.2-5.2); ALKALINE PHOSPHATASE 74 U/L (46-116); ALT/SGPT 29 U/L (7.0-40); AST/SGOT < 8 U/L (<34); BILIRUBIN,TOTAL 0.9 MG/DL (0.3-1.2); BLOOD UREA NITROGEN 17 MG/DL (9-23); CALCIUM LEVEL 9.3 MG/DL (8.3-10.6); CARBON DIOXIDE LEVEL 28 MMOL/L (20-31); CHLORIDE LEVEL 108 MMOL/L (98-107); CHOLESTEROL LEVEL 151 MG/DL (<200); CHOLESTEROL RISK RATIO 3.19 (<5); CREATININE FOR GFR 0.78 MG/DL (0.70-1.30); GLOMERULAR FILTRATION RATE > 60.0 (>49); GLUCOSE, FASTING 113 MG/DL (74-106); HDL CHOLESTEROL 47.3 MG/DL (>40); LDL CHOLESTEROL 90.1 MG/DL (<100); NON-HDL-C 103.7 MG/DL; POTASSIUM SERUM 4.2 MMOL/L (3.5-5.1); PROSTATIC SPECIFIC AG MONITOR 1.06 NG/ML (< 4.00); SODIUM LEVEL 142 MMOL/L (136-145); THYROID STIMULATING HORMONE 2.289 uIU/ML (0.55-4.78); TOTAL PROTEIN 7.1 G/DL (5.7-8.2); TRIGLYCERIDES LEVEL 68 MG/DL (<150)
== END ==
LOC: M LAB 08:47
PROVIDERS: ATTEND Family Medicine
DX: D64.9 Anemia, unspecified (principal); E03.9 Hypothyroidism, unspecified; R97.20 Elevated prostate specific antigen [PSA]

== ENCOUNTER → 2023-01-10 | Outpatient (CLI) | payer MEDICARE, OTHER | LOC: M RAD 09:54 | PROVIDERS: ATTEND Family Medicine | DX: R19.01 Right upper quadrant abdominal swelling, mass and lump (principal); R19.04 Left lower quadrant abdominal swelling, mass and lump; R19.05 Periumbilic swelling, mass or lump; K76.0 Fatty (change of) liver, not elsewhere classified; K80.80 Other cholelithiasis without obstruction; R16.1 Splenomegaly, not elsewhere classified ==

== ENCOUNTER 2023-05-14 06:56 | Day surgery (SDC) | payer MEDICARE, OTHER ==
[~2023-05-14] VITALS: Ht 182.9 cm; Wt 87.5 kg
[~2023-05-14 06:56] MED LIST changes: +NS 1,000 ML IV ONE; +[UNRECOGNIZED DRUG - OTHER] PO
[2023-05-14 09:31] VITALS: TEMP 98.2
[2023-05-14 09:49] VITALS: BP 136/92; O2SAT 100
== END 2023-05-14 09:45 | disposition home or self-care (01) ==
LOC: M OPP 06:56
PROVIDERS: ATTEND Internal Medicine Gastroenterology
DX: Z12.11 Encounter for screening for malignant neoplasm of colon (principal); D12.0 Benign neoplasm of cecum; D12.3 Benign neoplasm of transverse colon; K57.30 Diverticulosis of large intestine without perforation or abscess without bleeding; K64.8 Other hemorrhoids; E11.9 Type 2 diabetes mellitus without complications; Z79.02 Long term (current) use of antithrombotics/antiplatelets; Z79.84 Long term (current) use of oral hypoglycemic drugs; Z79.899 Other long term (current) drug therapy

== ENCOUNTER → 2023-07-03 | Outpatient (CLI) | payer MEDICARE, OTHER ==
[~2023-07-03] MED LIST changes: -NS 1,000 ML IV ONE
[2023-07-03 10:54] LABS: HEMOGLOBIN 14.3 g/dl (13.5-17.5); MEAN CORPUSCULAR HEMOGLOBIN 31.2 pg (27.0-33.0); MEAN CORPUSCULAR HGB CONC 33.3 g/dl (32.0-36.5); MEAN CORPUSCULAR VOLUME 93.7 fl (80.0-96.0); PLATELET COUNT, AUTOMATED 209 10^3/uL (150-450); RED BLOOD COUNT 4.59 10^6/uL (4.30-6.10); WHITE BLOOD COUNT 5.5 10^3/uL (4.0-10.0)
[2023-07-03 11:08] LABS: HEMOGLOBIN A1c 5.3 % (4.0-6.0)
[2023-07-03 11:35] LABS: PROSTATIC SPECIFIC AG MONITOR 1.42 NG/ML (< 4.00); TESTOSTERONE 617 NG/DL (241-827); THYROID STIMULATING HORMONE 2.987 uIU/ML (0.55-4.78)
[2023-07-03 11:45] LABS: ALBUMIN 4.3 G/DL (3.2-5.2); ALKALINE PHOSPHATASE 77 U/L (46-116); ALT/SGPT 31 U/L (7.0-40); AST/SGOT 17 U/L (<34); BILIRUBIN,TOTAL 0.8 MG/DL (0.3-1.2); BLOOD UREA NITROGEN 19 MG/DL (9-23); CALCIUM LEVEL 9.2 MG/DL (8.3-10.6); CARBON DIOXIDE LEVEL 28 MMOL/L (20-31); CHLORIDE LEVEL 109 MMOL/L (98-107); CHOLESTEROL LEVEL 179 MG/DL (<200); CREATININE FOR GFR 0.79 MG/DL (0.70-1.30); GLOMERULAR FILTRATION RATE > 60.0 (>49); GLUCOSE, FASTING 119 MG/DL (74-106); HDL CHOLESTEROL 59.6 MG/DL (>40); LDL CHOLESTEROL 107.8 MG/DL (<100); NON-HDL-C 119.4 MG/DL; POTASSIUM SERUM 4.3 MMOL/L (3.5-5.1); SODIUM LEVEL 141 MMOL/L (136-145); TOTAL PROTEIN 7.3 G/DL (5.7-8.2); TRIGLYCERIDES LEVEL 58 MG/DL (<150)
== END ==
LOC: M LAB 09:51
PROVIDERS: ATTEND Family Medicine
DX: I10 Essential (primary) hypertension (principal); R53.83 Other fatigue; E11.9 Type 2 diabetes mellitus without complications; E03.9 Hypothyroidism, unspecified; R97.20 Elevated prostate specific antigen [PSA]

== ENCOUNTER → 2023-10-10 | Outpatient (CLI) | payer MEDICARE, OTHER ==
[~2023-10-10] MED LIST changes: +DOXY-323 PO; -DOXY-443 PO
[2023-10-10 09:22] LABS: HEMATOCRIT 38.5 % (42.0-52.0); MEAN CORPUSCULAR HEMOGLOBIN 30.5 pg (27.0-33.0); MEAN CORPUSCULAR HGB CONC 33.8 g/dl (32.0-36.5); MEAN CORPUSCULAR VOLUME 90.4 fl (80.0-96.0); PLATELET COUNT, AUTOMATED 254 10^3/uL (150-450); RED BLOOD COUNT 4.26 10^6/uL (4.30-6.10); WHITE BLOOD COUNT 7.2 10^3/uL (4.0-10.0)
[2023-10-10 09:37] LABS: ERYTHROCYTE SEDIMENTATION RATE 19 mm/hr (0-20)
[2023-10-10 09:40] LABS: URIC ACID 3.1 MG/DL (3.7-9.2)
[2023-10-10 09:43] LABS: RHEUMATOID FACTOR QUANT 7.9 IU/ML (<14)
== END ==
LOC: M RAD 08:16
PROVIDERS: ATTEND Family Medicine
DX: M06.9 Rheumatoid arthritis, unspecified (principal)

== ENCOUNTER → 2023-12-06 | Outpatient (CLI) | payer MEDICARE, OTHER ==
[2023-12-06 08:01] LABS: HEMOGLOBIN 11.9 g/dl (13.5-17.5); MEAN CORPUSCULAR HEMOGLOBIN 29.4 pg (27.0-33.0); MEAN CORPUSCULAR HGB CONC 33.1 g/dl (32.0-36.5); MEAN CORPUSCULAR VOLUME 88.9 fl (80.0-96.0); PLATELET COUNT, AUTOMATED 280 10^3/uL (150-450); RED BLOOD COUNT 4.05 10^6/uL (4.30-6.10); WHITE BLOOD COUNT 7.2 10^3/uL (4.0-10.0)
[2023-12-06 08:17] LABS: HEMOGLOBIN A1c 5.4 % (4.0-6.0)
[2023-12-06 08:39] LABS: PROSTATIC SPECIFIC AG MONITOR 1.64 NG/ML (< 4.00)
[2023-12-06 08:42] LABS: ALBUMIN 3.7 G/DL (3.2-5.2); ALKALINE PHOSPHATASE 71 U/L (46-116); ALT/SGPT 51 U/L (7.0-40); AST/SGOT 18 U/L (<34); BILIRUBIN,TOTAL 0.5 MG/DL (0.3-1.2); BLOOD UREA NITROGEN 17 MG/DL (9-23); CALCIUM LEVEL 9.2 MG/DL (8.3-10.6); CARBON DIOXIDE LEVEL 24 MMOL/L (20-31); CHLORIDE LEVEL 109 MMOL/L (98-107); CHOLESTEROL LEVEL 151 MG/DL (<200); CHOLESTEROL RISK RATIO 3.14 (<5); CREATININE FOR GFR 0.66 MG/DL (0.70-1.30); GLOMERULAR FILTRATION RATE > 60.0 (>49); GLUCOSE, FASTING 125 MG/DL (74-106); LDL CHOLESTEROL 91.8 MG/DL (<100); POTASSIUM SERUM 4.5 MMOL/L (3.5-5.1); SODIUM LEVEL 141 MMOL/L (136-145); TOTAL PROTEIN 6.8 G/DL (5.7-8.2); TRIGLYCERIDES LEVEL 56 MG/DL (<150)
[2023-12-06 08:43] LABS: TESTOSTERONE 313 NG/DL (241-827); THYROID STIMULATING HORMONE 2.665 uIU/ML (0.55-4.78)
== END ==
LOC: M LAB 07:34
PROVIDERS: ATTEND Family Medicine
DX: I10 Essential (primary) hypertension (principal); R53.83 Other fatigue; E03.9 Hypothyroidism, unspecified; R97.20 Elevated prostate specific antigen [PSA]

== ENCOUNTER → 2024-02-15 | Outpatient (CLI) | payer MEDICARE, OTHER ==
[2024-02-15 10:47] LABS: HEMATOCRIT 39.9 % (42.0-52.0); HEMOGLOBIN 13.1 g/dl (13.5-17.5); MEAN CORPUSCULAR HEMOGLOBIN 29.8 pg (27.0-33.0); MEAN CORPUSCULAR HGB CONC 32.8 g/dl (32.0-36.5); MEAN CORPUSCULAR VOLUME 90.7 fl (80.0-96.0); PLATELET COUNT, AUTOMATED 249 10^3/uL (150-450); WHITE BLOOD COUNT 6.5 10^3/uL (4.0-10.0)
== END ==
LOC: M LAB 09:02
PROVIDERS: ATTEND Family Medicine
DX: R53.83 Other fatigue (principal); E29.1 Testicular hypofunction

== ENCOUNTER → 2024-06-10 | Outpatient (CLI) | payer MEDICARE, OTHER ==
[~2024-06-10] MED LIST changes: -CYCL5TAB PO; +CYCL5TAB4 PO; -DOXY-323 PO; +DOXY-441 PO
[2024-06-10 09:33] LABS: HEMATOCRIT 41.5 % (42.0-52.0); HEMOGLOBIN 14.2 g/dl (13.5-17.5); MEAN CORPUSCULAR HGB CONC 34.2 g/dl (32.0-36.5); MEAN CORPUSCULAR VOLUME 90.6 fl (80.0-96.0); PLATELET COUNT, AUTOMATED 242 10^3/uL (150-450); RED BLOOD COUNT 4.58 10^6/uL (4.30-6.10); WHITE BLOOD COUNT 7.1 10^3/uL (4.0-10.0)
[2024-06-10 09:39] LABS: ALBUMIN 4.1 G/DL (3.2-5.2); ALKALINE PHOSPHATASE 65 U/L (40-129); ALT/SGPT 28 U/L (7.0-40); AST/SGOT 16 U/L (<34); BILIRUBIN,TOTAL 0.7 MG/DL (0.3-1.2); BLOOD UREA NITROGEN 23 MG/DL (9-23); CALCIUM LEVEL 9.8 MG/DL (8.3-10.6); CARBON DIOXIDE LEVEL 29 MMOL/L (20-31); CHLORIDE LEVEL 109 MMOL/L (98-107); CHOLESTEROL LEVEL 167 MG/DL (<200); CHOLESTEROL RISK RATIO 2.89 (<5); CREATININE FOR GFR 0.71 MG/DL (0.70-1.30); GLOMERULAR FILTRATION RATE > 60.0 (>49); GLUCOSE, FASTING 117 MG/DL (74-106); HDL CHOLESTEROL 57.6 MG/DL (>40); NON-HDL-C 109.4 MG/DL; POTASSIUM SERUM 4.3 MMOL/L (3.5-5.1); PROSTATIC SPECIFIC AG MONITOR 2.16 NG/ML (< 4.00); SODIUM LEVEL 142 MMOL/L (136-145); TOTAL PROTEIN 7.3 G/DL (5.7-8.2); TRIGLYCERIDES LEVEL 52 MG/DL (<150)
[2024-06-10 09:40] LABS: HEMOGLOBIN A1c 5.5 % (4.0-6.0)
[2024-06-10 09:42] LABS: THYROID STIMULATING HORMONE 3.146 uIU/ML (0.55-4.78)
[2024-06-10 09:43] LABS: TESTOSTERONE 433 NG/DL (241-827)
== END ==
LOC: M LAB 08:42
PROVIDERS: ATTEND Family Medicine
DX: I10 Essential (primary) hypertension (principal); R53.83 Other fatigue; R97.20 Elevated prostate specific antigen [PSA]

== ENCOUNTER → 2024-08-07 | Outpatient (CLI) | payer MEDICARE, OTHER | LOC: M LAB 09:49 | PROVIDERS: ATTEND Urology | DX: N40.1 Benign prostatic hyperplasia with lower urinary tract symptoms (principal) ==

== ENCOUNTER → 2025-02-04 | Outpatient (CLI) | payer MEDICARE, OTHER ==
[~2025-02-04] MED LIST changes: -ASPI-655 PO; +ASPI-737 PO; -PRAV40TA2 PO; +PRAV40TA85 PO
== END ==
LOC: M LAB 07:29
PROVIDERS: ATTEND Urology
DX: N40.1 Benign prostatic hyperplasia with lower urinary tract symptoms (principal); R39.11 Hesitancy of micturition; E78.00 Pure hypercholesterolemia, unspecified

== ENCOUNTER → 2025-02-04 | Outpatient (CLI) | payer MEDICARE, OTHER ==
[2025-02-04 08:52] LABS: CHOLESTEROL LEVEL 113.0 MG/DL (<200); CHOLESTEROL RISK RATIO 1.82 (<5); LDL CHOLESTEROL 40.5 MG/DL (<100); NON-HDL-C 51.1 MG/DL; TRIGLYCERIDES LEVEL 53.0 MG/DL (<150)
== END ==
LOC: M LAB 07:35
PROVIDERS: ATTEND Nurse Practitioner Acute Care
DX: E78.00 Pure hypercholesterolemia, unspecified (principal)

== ENCOUNTER 2025-02-23 07:54 | Day surgery (SDC) | payer MEDICARE, OTHER ==
[~2025-02-23] VITALS: Ht 182.9 cm; Wt 87.9 kg
[~2025-02-23 07:54] MED LIST changes: +EZET10TA57 PO; +ROSU20TA86 PO; +THERTAB52 PO
[2025-02-23] MEDS ORDERED: GLYCOPYRROLATE INJ 0.2 MG/ML 2 ML VIAL As Ordered ONE (09:03)
[2025-02-23] MEDS ORDERED: LIDOCAINE 2% 100 MG/5 ML SDV (FOR ANES.) As Ordered ONE (09:03)
[2025-02-23 09:22] VITALS: TEMP 97.6
[2025-02-23 09:36] VITALS: BP 155/88; O2SAT 99
== END 2025-02-23 09:44 | disposition home or self-care (01) ==
LOC: M OPP 07:54
PROVIDERS: ATTEND Internal Medicine Gastroenterology
DX: D12.0 Benign neoplasm of cecum (principal); K57.30 Diverticulosis of large intestine without perforation or abscess without bleeding; K64.8 Other hemorrhoids; Z86.0101 Personal history of adenomatous and serrated colon polyps; Z88.8 Allergy status to other drugs, medicaments and biological substances; Z79.84 Long term (current) use of oral hypoglycemic drugs; Z79.899 Other long term (current) drug therapy; J45.909 Unspecified asthma, uncomplicated
CPT/HCPCS: 45385; 88305; J1596